=== PATIENT | male | born 1975 | race Native Hawaiian/Other Pacific Islander ===

== ENCOUNTER 2019-12-01 14:42 | Outpatient (CLI) | payer OTHER | END 2019-12-01 20:12 | disposition home or self-care (01) | LOC: RAD 14:42 | DX: M85.89 Other specified disorders of bone density and structure, multiple sites (principal) ==

== ENCOUNTER 2021-10-11 13:06 | Outpatient (CLI) | payer OTHER | END 2021-10-11 20:44 | disposition home or self-care (01) | LOC: RESP 13:06 | PROVIDERS: ATTEND Specialist | DX: G40.209 Localization-related (focal) (partial) symptomatic epilepsy and epileptic syndromes with complex partial seizures, not intractable, without status epilepticus (principal); G40.309 Generalized idiopathic epilepsy and epileptic syndromes, not intractable, without status epilepticus ==